=== PATIENT | female | born 1965 | race American Indian/Alaskan Native ===

== ENCOUNTER 2016-10-03 13:47 | Outpatient (CLI) | payer BC ==
--- NOTE | 2016-10-03 15:29 | Mammography Report ---
BILATERAL MAMMOGRAM: FINDINGS: The breast tissue is heterogeneously dense, which could obscure detection of small masses (approximately 50%-75% glandular). No mass, distortion, suspicious calcification, or skin change is seen. The findings are unchanged compared to her prior examinations in July 2015. CAD was utilized. IMPRESSION: Negative mammogram. There is no mammographic evidence of malignancy. RECOMMENDATION: Follow-up per ACS guidelines. BI-RADS CATEGORY: 1 = Negative ACR BI-RADS MAMMOGRAPHIC CODES: 0 = Needs additional imaging evaluation; 1 = Negative; 2 = Benign; 3 = Probably benign; 4 = Suspicious; 5 = Malignant; 6 = Known biopsy-proven malignancy COMMENT: 1. Dense breast tissue, i.e., adenosis, fibrocystic changes, etc., may obscure an underlying neoplasm. 2. Approximately 10% of cancers are not detected with mammography. 3. A negative mammography report should not delay biopsy if a clinically suspicious mass is present. COMMENT: Patient follow-up letters are generated in [employer].
== END 2016-10-03 13:48 | disposition home or self-care (01) ==
LOC: SPVWC 13:47
PROVIDERS: ATTEND Obstetrics & Gynecology Gynecology
DX: Z12.31 Encounter for screening mammogram for malignant neoplasm of breast (principal)
CPT/HCPCS: 77067; G0202

== ENCOUNTER 2017-10-06 10:28 | Outpatient (CLI) | payer BC ==
--- NOTE | 2017-10-06 15:43 | Mammography Report ---
BILATERAL DIGITAL SCREENING MAMMOGRAM with CAD: 10/06/17 10:28:00 CLINICAL: Routine screening. COMPARISON:10/03/16 FINDINGS: The breasts are heterogeneously dense, which may obscure small masses. A new left inner asymmetry with architectural distortion requires additional imaging.No suspicious calcifications. The right breast is negative. IMPRESSION: Left asymmetry and architectural distortion requiring further workup. BI-RADS CATEGORY: 0 -- Additional Imaging Evaluation Required RECOMMENDATION: Recall for left lateralmedial and spot magnification MLO and CC views and left breast ultrasound. ACR BI-RADS MAMMOGRAPHIC CODES: 0 = Needs additional imaging evaluation; 1 = Negative; 2 = Benign; 3 = Probably benign; 4 = Suspicious; 5 = Malignant; 6 = Known biopsy-proven malignancy COMMENT: 1. Dense breast tissue, i.e., adenosis, fibrocystic changes, etc., may obscure an underlying neoplasm. 2. Approximately 10% of cancers are not detected with mammography. 3. A negative mammography report should not delay biopsy if a clinically suspicious mass is present. COMMENT: Patient follow-up letters are generated via our [employer] application.
== END 2017-10-06 10:29 | disposition home or self-care (01) ==
LOC: SPVWC 10:28
PROVIDERS: ATTEND Obstetrics & Gynecology Gynecology
DX: Z12.31 Encounter for screening mammogram for malignant neoplasm of breast (principal)
CPT/HCPCS: 77067

== ENCOUNTER 2017-10-13 13:53 | Outpatient (CLI) | payer BC ==
--- NOTE | 2017-10-13 15:36 | Ultrasound Report ---
LEFT DIGITAL DIAGNOSTIC MAMMOGRAM and LEFT BREAST ULTRASOUND: 10/13/17 13:53:00 CLINICAL: Recalled for asymmetry. COMPARISON:10/06/17 screening FINDINGS: Lateralmedial and spot magnification MLO and CC views were performed. Satisfactory effacement of lower inner asymmetry and architectural distortion. A few prominent ducts identified in the area. Ultrasound of the lower left breast was performed and demonstrated no mass, cyst or shadowing to correlate with the mammographic finding. A benign cyst at 5 o'clock at the edge of the areola measures 3 x 2 x 3 mm and benign clustered microcysts at 3 o'clock at the edge of the areola measure 1.0 x 0 5 x 0.5 cm. I scanned the patient myself and demonstrated no other findings. IMPRESSION: Negative Mammogram.Benign cysts at 3 o'clock and 5 o'clock. BI-RADS CATEGORY: 2 - - Benign RECOMMENDATION: Routine mammographic screening in one year. ACR BI-RADS MAMMOGRAPHIC CODES: 0 = Needs additional imaging evaluation; 1 = Negative; 2 = Benign; 3 = Probably benign; 4 = Suspicious; 5 = Malignant; 6 = Known biopsy-proven malignancy COMMENT: 1. Dense breast tissue, i.e., adenosis, fibrocystic changes, etc., may obscure an underlying neoplasm. 2. Approximately 10% of cancers are not detected with mammography. 3. A negative mammography report should not delay biopsy if a clinically suspicious mass is present. COMMENT: Patient follow-up letters are generated via our [employer] application.
== END 2017-10-13 13:54 | disposition home or self-care (01) ==
LOC: SPVWC 13:53
PROVIDERS: ATTEND Obstetrics & Gynecology Gynecology
DX: N60.02 Solitary cyst of left breast (principal)